=== PATIENT | female | born 1945 | race Caucasian/White ===

== ENCOUNTER 2018-03-27 23:08 | Inpatient (IN) | payer OTHER ==
[~2018-03-27] VITALS: Ht 157.5 cm; Wt 43.5 kg
--- NOTE | 2018-03-27 23:10 | NUR ---
Patient to ER bed 6 to gown for evaluation. Side rails up.
[2018-03-27 23:20] VITALS: BP_SYST 134
--- NOTE | 2018-03-27 23:20 | NUR ---
Patient to ER via wheelchair from triage, patient brought in by friend after being found at home covered in feces. Patient is awake, alert and confused unable to answer questions as to why she is here. Patient incontinent of liquid stool, skin care given. Vital signs stable, respirations even and unlabored, skin pale, warm and dry to touch. DPA at bedside. Awaiting evaluation by ER MD, will continue to observe and assess.
--- NOTE | 2018-03-27 23:25 | NUR ---
ER at bedside examining patient.
[2018-03-27] MEDS ORDERED: NACL 0.9% 1,000 ML IV ONE (23:26)
[2018-03-27] MEDS ORDERED: ONDANSETRON HCL 4 MG/2 ML VIAL IVP ONE (23:30)
--- NOTE | 2018-03-28 | NUR ---
Patient resting quietly in no acute distress, respirations even and unlabored, skin warm and dry to touch. IV fluids infusing without difficulty, no redness or swelling noted at site.
[2018-03-28 00:07] LABS: HEMOGLOBIN 15.9 g/dL (12.0-16.0); MEAN CORPUSCULAR HEMOGLOBIN 30 pg (27-31); MEAN CORPUSCULAR HGB CONC 33 % (32-36); MEAN CORPUSCULAR VOLUME 89 fL (79.0-98.0); PLATELET COUNT (AUTO) 515 K/uL (130-430); RED BLOOD CELL COUNT(AUTO) 5.39 MIL/uL (4.2-6.2); RED CELL DISTRIBUTION WIDTH 13.2 % (9.0-15.0); WHITE BLOOD COUNT (AUTO) 20.1 K/uL (4.8-10.8)
[2018-03-28 00:12] LABS: ANION GAP 13 (5-15); CALCIUM 9.1 mg/dL (8.4-11.0); CHLORIDE 103 mmol/L (98-107); CREATININE 1.06 mg/dL (0.55-1.30); GLUCOSE 135 mg/dL (70-99); POTASSIUM 3.8 mmol/L (3.5-5.1); SODIUM SERUM 142 mmol/L (136-145); UREA NITROGEN, BLOOD 35 mg/dL (8-21)
[2018-03-28 00:23] LABS: ALANINE AMINOTRANSFERASE 24 U/L (12-78); ALBUMIN 3.1 g/dL (3.4-4.8); ASPARTATE AMINOTRANSFERASE 28 U/L (10-37); LIPASE 141 U/L (73-393); TOTAL BILIRUBIN 0.7 mg/dL (0.0-1.0)
--- NOTE | 2018-03-28 00:40 | NUR ---
# 14 FR In and Out catheter with use of sterile technique. Immediate return of 100 ml ron urine noted. Urine sample collected and sent to lab. Pt tolerated procedure well. Patient unable to toilet self.
[2018-03-28] MEDS ORDERED: PIPERACILLIN/TAZO 3.375 GM in NS 50 ML IV ONE (00:45)
[2018-03-28] MEDS ORDERED: LEVO25TA7 PO (00:48)
[2018-03-28 00:56] LABS: BILIRUBIN,URINE 1+ (NEGATIVE); CLARITY/URINE SL HAZY (CLEAR); COLOR,URINE YELLOW (YELLOW); GLUCOSE,URINE NEGATIVE (NEGATIVE); KETONES,URINE 1+ (NEGATIVE); LEUKOCYTE ESTERASE ,URINE 2+ (NEGATIVE); NITRITE, URINE NEGATIVE (NEGATIVE); PROTEIN URINE TRACE (NEGATIVE); UROBILINOGEN,URINE 0.2 (0.2-1.0)
[2018-03-28 00:56] LABS: BAND % (MANUAL) 2 % (0-6); BASOPHILS % (MANUAL) 0 % (0-2); EOSINOPHILS % (MANUAL) 0 % (0-7); LYMPHOCYTES % (MANUAL) 9 % (20-46); MONOCYTES % (MANUAL) 5 % (0-11)
--- NOTE | 2018-03-28 01:00 | NUR ---
Blood cultures drawn, prior to administration of antibiotic.
[2018-03-28 01:01] LABS: BLOOD, URINE TRACE (NEGATIVE)
[2018-03-28] MEDS ORDERED: PIPERACILLIN/TAZOBACTAM 3.375 GM/VIAL (ZOSYN) IV ONE (01:06)
--- NOTE | 2018-03-28 01:12 | NUR ---
Medicated with Zosyn IVPB. Patient tolerated well. Will continue to monitor.
--- NOTE | 2018-03-28 01:30 | NUR ---
Patient resting quietly in no acute distress, IV fluids infusing without difficulty, no redness or swelling noted at site.
[2018-03-28 01:31] LABS: BACTERIA,URINE MODERATE /HPF (None Seen); MUCUS,URINE 1+ /LPF (None Seen); WBC,URINE 50-80 /HPF (0-3)
--- NOTE | 2018-03-28 02:00 | NUR ---
No adverse reaction noted to medication.
--- NOTE | 2018-03-28 02:15 | NUR ---
Patient will be admitted to care of Dr Oliva. Admitted to MS unit. Will go to room 105. Belongings list completed. Summary report printed. Report will be given at bedside. Transfer to [facility]. IV present no sign or symptom of infiltration.
[2018-03-28 02:20] VITALS: BP_SYST 128
--- NOTE | 2018-03-28 02:31 | NUR ---
ADMISSION: The patient, CONSUELO RAMIREZ, 73 y/o, F admitted by VANESA LIANG MD, with the diagnosis of Diarrhea , was given written information regarding hospital policies, unit procedures and contact persons.
[2018-03-28 02:45] VITALS: BP_SYST 137
--- NOTE | 2018-03-28 02:50 | NUR ---
INITIAL NOTE AT INITIAL ASSESSMENT, PATIENT IS RESTING IN BED, STABLE, NO SIGNS OF RESPIRATORY DISTRESS. SHE IS ANXIOUS BUT HER FRIEND AT BEDSIDE IS ABLE TO CALM HER DOWN. PATIENT VERBALIZES NO PAIN. PLAN OF CARE IS COMMUNICATED WITH HER AND HER FRIEND KARINA AT BEDSIDE. CALL LIGHT- TEACH BACK IS SUCCESSFUL. BED IS LOCKED, ALARMED, AND AT THE LOWEST LEVEL. FALL AND SAFETY PRECAUTIONS WILL BE IN PLACE THROUGHOUT THE SHIFT.
--- NOTE | 2018-03-28 02:55 | NUR ---
POWER OF MARINE ELECTRICIAN PATIENT'S FRIEND KARINA HAS GIVEN PAPERWORK TO SHOW THAT SHE IS THE POWER OF MARINE ELECTRICIAN FOR THE PATIENT. PAPERWORK HAS BEEN PLACED IN PATIENT FOLDER, CHARGE NURSE WILL BE MADE AWARE.
[2018-03-28] MEDS ORDERED: metroNIDAZOLE 500 mg/NS 100 ML IV ONE (03:47)
[2018-03-28] MEDS: KCL 20 mEq in D5/0.45NS 1000mL 1,000 ML IV SCH ×2 (04:01→17:30)
--- NOTE | 2018-03-28 04:46 | NUR ---
NOTE PATIENT IS RESTING IN BED, STABLE, NO SIGNS OF RESPIRATORY DISTRESS. HER FRIEND KARINA IS AT BEDSIDE. CALL LIGHT IS WITHIN REACH. BED IS LOCKED, ALARMED, AND AT THE LOWEST LEVEL.
[2018-03-28] MEDS: metroNIDAZOLE 500 mg/NS 100 ML IV SCH ×3 (05:57→21:02)
--- NOTE | 2018-03-28 06:42 | NUR ---
CLOSING NOTE PATIENT IS SLEEPING, STABLE, NO SIGNS OF RESPIRATORY DISTRESS. HER FRIEND KARINA IS AT BEDSIDE. PATIENT HAD NO DIARRHEA SINCE HER ARRIVAL TO THE [facility] FLOOR. CALL LIGHT IS WITHIN REACH. BED IS LOCKED, ALARMED, AND AT THE LOWEST LEVEL. FALL AND SAFETY PRECAUTIONS HAVE BEEN IN PLACE THROUGHOUT THE SHIFT. WILL CONTINUE TO MONITOR UNTIL SHIFT REPORT IS GIVEN AT BEDSIDE TO AM NURSE.
--- NOTE | 2018-03-28 07:38 | NUR ---
COMMUNICATION WITH DR. LIANG PRN MEDICATION FOR PATIENT'S COMPLAINT OF ABDOMINAL PAIN AND HER ANXIETY IS COMMUNICATED TO MD. ORDERED RECEIVED, READ BACK, VERIFIED, AND ENTERED.
[2018-03-28] MEDS ORDERED: MORPHINE 4 MG/ML INJ. SYRINGE IVP PRN ×2 (07:45)
[2018-03-28] MEDS ORDERED: ACETAMINOPHEN 325 MG TABLET PO PRN (07:45)
--- NOTE | 2018-03-28 08:00 | NUR ---
GI/SKIN/COMFORT Patient had loose stool , perineal area is really red, wash with water/soap , paper towel to avoid irritation , kept/dry skin cream barrier applied repositioned, MD informed regarding skin issue and diarrhea with new order carried out.
[2018-03-28 08:09] VITALS: BP_SYST 152
--- NOTE | 2018-03-28 08:14 | NUR ---
Nutrition Update Martinez Scale 14 noted. Pt admitted for diarrhea, dehydration Diet: mechanical soft diet BMI: 15 kg/m2 RD to follow per nutrition care standards.
[2018-03-28] MEDS ORDERED: MENTHOL/ZINC OXIDE 113 GM OINT. TP PRN (09:15)
[2018-03-28 11:34] VITALS: BP_SYST 126
--- NOTE | 2018-03-28 12:40 | NUR ---
saw the patient, assisted to have lunch. will continue to monitor patients status.
[2018-03-28] MEDS ORDERED: ACETAMINOPHEN 650 MG SUPP.RECT RC PRN (13:30)
--- NOTE | 2018-03-28 14:00 | NUR ---
patient is resting at this time. quite.bit anxious. knows her name only.
--- NOTE | 2018-03-28 15:00 | NUR ---
quite and resting hob elevated. monitor patient status. respiration even and unlabored.
[2018-03-28 16:00] VITALS: BP_SYST 134
--- NOTE | 2018-03-28 16:53 | NUR ---
turn patient up and sides to sides. fed the patients with dessert about 40% ate. still with redness noted at the buttocks area. z guard applied on it.
[2018-03-28] MEDS: PIPERACILLIN/TAZO 2.25G/DEX-IS 50 ML IV SCH ×2 (17:30→23:47)
--- NOTE | 2018-03-28 18:23 | NUR ---
no bm on my time. made comfortable. fed the patient at this time. monitor patients status
--- NOTE | 2018-03-28 19:10 | NUR ---
OPENING NOTES RECEIVED PATIENT AWAKE IN BED. BREATHING UNLABORED ON ROOM AIR. DENIES PAIN AT THIS TIME. IVF INFUSING ORDERED. PLAN OF CARE DISCUSSED WITH PATIENT. PLACED CALL LIGHT WITHIN REACH. BED ALARM ON
--- NOTE | 2018-03-28 19:35 | NUR ---
endorsed to incoming nite nurse.
--- NOTE | 2018-03-28 19:36 | NUR ---
endorsed to incoming nite nurse.
[2018-03-28 21:00] VITALS: BP_SYST 96
--- NOTE | 2018-03-28 21:02 | NUR ---
ATB DUE ANTIBIOTIC INFUSED ORDERED. IVF LINE INTACT.
[2018-03-29] VITALS: BP_SYST 111
[2018-03-29] MEDS: ALPRAZolam 0.25 MG TABLET PO PRN ×3 (03:06→21:52)
--- NOTE | 2018-03-29 03:06 | NUR ---
PT ANXIOUS PATIENT ANXIOUS AND JITTERY. PER PATIENT SHE DOESNT KNOW WHAT TO DO. XANAX GIVEN ORDERED. SIDE RAILS UP X3. CALL LIGHT WITHIN REACH. BED ALARM ON.
[2018-03-29] MEDS: PIPERACILLIN/TAZO 2.25G/DEX-IS 50 ML IV SCH ×3 (05:20→18:34)
--- NOTE | 2018-03-29 05:20 | NUR ---
AM CARE DUE ANTIBIOTIC INFUSED. IV LINE INTACT. PATIENT HAD BM. AM CARE DONE. LINENS CHANGED.
[2018-03-29] MEDS: metroNIDAZOLE 500 mg/NS 100 ML IV SCH ×3 (06:01→21:52)
[2018-03-29] MEDS: LEVOTHYROXINE SODIUM 0.025 MG TABLET PO SCH (06:04)
[2018-03-29 06:45] LABS: BASOPHILS % (AUTO) 0.3 % (0.0-2.0); EOSINOPHILS # (AUTO) 0.2 K/uL (0.0-0.4); HEMATOCRIT 36.3 % (36-48); LYMPHOCYTES # (AUTO) 1.7 K/uL (1.0-5.5); LYMPHOCYTES % (AUTO) 14.7 % (20.5-51.5); MEAN CORPUSCULAR HEMOGLOBIN 31 pg (27-31); MEAN CORPUSCULAR HGB CONC 33 % (32-36); MEAN CORPUSCULAR VOLUME 93 fL (79.0-98.0); MONOCYTES # (AUTO) 0.5 K/uL (0.0-1.0); MONOCYTES % (AUTO) 4.6 % (1.7-9.3); NEUTROPHILS # (AUTO) 9.2 K/uL (1.8-7.7); NEUTROPHILS % (AUTO) 78.4 % (40.0-70.0); PLATELET COUNT (AUTO) 388 K/uL (130-430); RED BLOOD CELL COUNT(AUTO) 3.92 MIL/uL (4.2-6.2); RED CELL DISTRIBUTION WIDTH 13.4 % (9.0-15.0)
[2018-03-29 06:58] LABS: WHITE BLOOD COUNT (AUTO) 11.6 K/uL (4.8-10.8)
--- NOTE | 2018-03-29 07:06 | NUR ---
CLOSING NOTES PATIENT RESTING IN BED. IVF INFUSING WITH IV LINE INTACT. PATIENT NEEDS ATTENDED. CALL LIGHT WITH IN EASY REACH. BED ALARM ON. BED IN LOWEST LOCKED POSITION.
[2018-03-29 07:25] LABS: ANION GAP 7 (5-15); CALCIUM 7.1 mg/dL (8.4-11.0); CHLORIDE 107 mmol/L (98-107); CREATININE 0.89 mg/dL (0.55-1.30); GLUCOSE 90 mg/dL (70-99); POTASSIUM 3.6 mmol/L (3.5-5.1); SODIUM SERUM 141 mmol/L (136-145); UREA NITROGEN, BLOOD 17 mg/dL (8-21)
[2018-03-29 07:46] LABS: AMYLASE 51 U/L (0-100); FREE T4 (FREE THYROXINE) 0.9 ng/dl (0.8-1.5); LIPASE 215 U/L (73-393); PHOSPHORUS 2.3 mg/dL (2.7-4.5)
[2018-03-29 08:00] VITALS: BP_SYST 128
--- NOTE | 2018-03-29 08:00 | NUR ---
OPENING NOTE: RECEIVED REPORT FROM NIGHT NURSE. PATIENT IS RESTING COMFORTABLY IN BED. NO S/S OF DISTRESS OR SOB. PATIENT IS ALERT AND ORIENTED TO NAME ONLY. VITAL SIGNS DOCUMENTED ON VITAL SIGNS FLOWSHEET. IV IS PATENT AND INFUSING. CALL LIGHT IN REACH, BED IN LOWEST POSITION, THREE SIDE-RAILS UP, AND WILL CONTINUE TO MONITOR.
[2018-03-29] MEDS: ENOXAPARIN SODIUM 30 MG/0.3 ML SYRINGE SUBCUT SCH (09:16)
--- NOTE | 2018-03-29 10:00 | NUR ---
RN ROUNDS PATIENT IS RESTING COMFORTABLY IN BED. PATIENT WAS CLEANED UP AND REPOSITIONED. PATIENT IS AWAKE BUT CONFUSED. PATIENT FREQUENTLY REORIENTED. CALL LIGHT IN REACH, BED IN LOWEST POSITION, AND WILL CONTINUE TO MONITOR.
[2018-03-29] MEDS: KCL 20 mEq in D5/0.45NS 1000mL 1,000 ML IV SCH (10:47)
--- NOTE | 2018-03-29 14:00 | NUR ---
RN ROUNDS PATIENT IS RESTING COMFORTABLY IN BED. PATIENT REPOSITIONED. REPOSITIONED. PATIENT IS AWAKE BUT CONFUSED. CALL LIGHT IN REACH, BED IN LOWEST POSITION, AND WILL CONTINUE TO MONITOR.
[2018-03-29 16:00] VITALS: BP_SYST 131
--- NOTE | 2018-03-29 16:00 | NUR ---
RN ROUNDS PATIENT IS RESTING COMFORTABLY IN BED. NO S.S OF DISTRESS OR SOB. PATIENT IS ALERT AND ORIENTED TO NAME ONLY. CALL LIGHT IN REACH, BED IN LOWEST POSITION, AND WILL CONTINUE TO MONITOR.
--- NOTE | 2018-03-29 19:32 | NUR ---
CLOSING NOTE: PATIENT IS RESTING COMFORTABLY IN BED. NO S/S OF DISTRESS OR SOB. PATIENT IS AWAKE BUT CONFUSED. ALL NEEDS MET DURING SHIFT. CALL LIGHT IN REACH, BED IN LOWEST POSITION, AND WILL CONTINUE TO MONITOR.
[2018-03-29 20:04] VITALS: BP_SYST 114
--- NOTE | 2018-03-29 20:04 | NUR ---
Opening notes Pt alert, awake confused, VSS, afebrile. No acute distress noted. IVF infusing L.AC 20G no s/s infiltration noted. Periarea redness/denuded noted. Applied Z guard after pericare. Bed low, locked, siderails x3 up, alarm on. Call light within reach. Will continue to monitor.
--- NOTE | 2018-03-29 21:52 | NUR ---
Rounds/Anxious Pt awake, anxious. CELLOPHANE WORKER provided hygiene care as pt is incontinent of urine. Pt medicated with Xanax as needed. Call light within reach. Safety measures in place. Bed alarm on. To monitor.
[2018-03-30] VITALS: BP_SYST 104
--- NOTE | 2018-03-30 00:20 | NUR ---
Rounds/Pericare Pt alert, anxious, yelling she needs to go bathroom. Pt oriented to surroundings, provided with bedpan, pt only had small amount of soft brown stool, no strong foul odor noted. Pericare provided and Z guard applied to sacral redness area. Will continue to monitor.
[2018-03-30] MEDS: KCL 20 mEq in D5/0.45NS 1000mL 1,000 ML IV SCH ×2 (00:22→18:46)
[2018-03-30] MEDS: PIPERACILLIN/TAZO 2.25G/DEX-IS 50 ML IV SCH ×4 (00:22→18:45)
--- NOTE | 2018-03-30 04:00 | NUR ---
Rounds Pt asleep. No s/s distress or discomfort noted. Call light within reach. Safety measures in place. To monitor.
[2018-03-30] MEDS: LEVOTHYROXINE SODIUM 0.025 MG TABLET PO SCH (06:19)
[2018-03-30] MEDS: metroNIDAZOLE 500 mg/NS 100 ML IV SCH ×3 (06:19→22:21)
--- NOTE | 2018-03-30 06:30 | NUR ---
Closing notes Pt asleep. No s/s distress noted. IV abx infusing as ordered L. AC20G no s/s infiltration noted. Call light within reach. Safety measures in place. To endorse to AM nurse.
[2018-03-30 08:00] VITALS: BP_SYST 110
--- NOTE | 2018-03-30 08:00 | NUR ---
initial notes rec patient asleep when rounds made with ivf infusing well. no infiltration noted. hob slightly elevated. resp easy and unlabored.bed to the lowest position and side rails up and locked. call light within reached and knows when to call for assistance. pt is close to the nurses station.
[2018-03-30] MEDS: ENOXAPARIN SODIUM 30 MG/0.3 ML SYRINGE SUBCUT SCH (09:26)
[2018-03-30] MEDS: ALPRAZolam 0.25 MG TABLET PO PRN (11:27)
--- NOTE | 2018-03-30 11:43 | NUR ---
rounds pt is getting confused and anxiety med was given. stayed at bedside. until patient went back to sleep. call light within reached and knows when to call and pt is close to the nurses station.
--- NOTE | 2018-03-30 12:41 | NUR ---
Dietitian Recommendations * Recommend mechanical soft diet w/ Ensure Enlive BID, Banatrol BID (oral supplement provides an additional 700 kcal/day and 40 gm protein/day) LP, RD Please refer to Nutrition Assessment for details.
[2018-03-30 13:04] VITALS: BP_SYST 111
--- NOTE | 2018-03-30 14:00 | NUR ---
rounds watching tv, no periods of restlessness at this time. no hob slightly elevated. no acute distress noted.
[2018-03-30 16:00] VITALS: BP_SYST 110
--- NOTE | 2018-03-30 16:00 | NUR ---
notes sleeps at intervals and no sob noted. pt close to the nurses station.
[2018-03-30 17:16] VITALS: BP_SYST 115
--- NOTE | 2018-03-30 18:30 | NUR ---
closing notes seen by dr avalos and updated re patient's condition. no sob noted. iv infiltrated and restarted on the l forearm. no infiltration noted. denies pain. bed to the lowest position and side rails up and locked. call light within and close to the nurses station.
[2018-03-30 20:00] VITALS: BP_SYST 110
--- NOTE | 2018-03-30 20:00 | NUR ---
Opening notes Pt awake, confused, eating dinner. VSS afebrile. No s/s distress noted. IVF infusing as ordered on L. FA 20G clear, patent. Safety measures in place, bed alarm on. To monitor.
[2018-03-31] VITALS: BP_SYST 0; BP_SYST 127
--- NOTE | 2018-03-31 00:20 | NUR ---
Rounds Pt asleep, no s/s distress noted. Call light within reach. To monitor.
[2018-03-31] MEDS: PIPERACILLIN/TAZO 2.25G/DEX-IS 50 ML IV SCH ×5 (00:25→17:26)
--- NOTE | 2018-03-31 04:45 | NUR ---
Rounds Pt asleep, no s/s distress or discomfort noted. IVF infusing as ordered no s/s infiltration L. FA 20G. Call light within reach. Bed alarm on. To monitor.
[2018-03-31] MEDS: metroNIDAZOLE 500 mg/NS 100 ML IV SCH ×3 (05:58→22:49)
[2018-03-31] MEDS: LEVOTHYROXINE SODIUM 0.025 MG TABLET PO SCH (06:45)
--- NOTE | 2018-03-31 06:45 | NUR ---
Closing notes Pt asleep, easily arousable. No s/s distress noted. IV abx administered as ordered L. FA 20G no s/s infiltration noted. Call light within reach. Bed alarm on. To endorse to AM nurse.
[2018-03-31 08:00] VITALS: BP_SYST 125
--- NOTE | 2018-03-31 08:00 | NUR ---
initial notes rec patient awake but and confused./ hob slightly elevated with o 2 at 2 liters via nasal cannula. no sob noted. resp easy and unlabored. denies pain at this time. bed to the lowest position and side rails up and locked. call light within reached and pt is close to the nurses station.
[2018-03-31] MEDS: ALPRAZolam 0.25 MG TABLET PO PRN ×2 (08:19→17:33)
[2018-03-31] MEDS: ENOXAPARIN SODIUM 30 MG/0.3 ML SYRINGE SUBCUT SCH (08:20)
[2018-03-31] MEDS: KCL 20 mEq in D5/0.45NS 1000mL 1,000 ML IV SCH ×2 (11:39→21:30)
--- NOTE | 2018-03-31 11:45 | NUR ---
MARTINEZ SCALE EVALUATION: Patient evaluated for a low Martinez score of 14. Patient was awake, alert, confused, shouts, and received in a Heather bed with an Atmos-Air 9000 mattress. Patient is unable to turn independently. Skin is fair (-). Recommend reposition patient side to side only every 2 hours with pillow support and off-load pressure areas with pillows for pressure re-distribution. Elevate, off-load and float bilateral heels with pillows. Use Calmoseptine cream on buttocks and other moisture susceptible areas QID and as needed for soiling. Perform skin care and monitor skin integrity Q shift. Place patient on a low air-loss mattress. Skin assessment: 1. Sacral-Coccygeal area: Erythema from IAD, present on admission. 2. Entire Buttocks and Posterior Proximal Thigh areas: Erythema from IAD, present on admission. 3. Perineal area: Erythema from IAD, present on admission. Recommend: Cleanse involved areas with mild soap and water. Pat dry. Apply antifungal ointment to involved areas BID, and prn for soiling.
--- NOTE | 2018-03-31 11:48 | NUR ---
notes abx was infused , sleeping soundly and wakes up at intervals. bed alarm is on.
[2018-03-31] MEDS ORDERED: MENTHOL/ZINC OXIDE 113 GM OINT. TP PRN (12:15)
[2018-03-31] MEDS ORDERED: ANTIFUNGAL CLEAR OINTMENT TP PRN (12:15)
[2018-03-31 12:28] VITALS: BP_SYST 122
--- NOTE | 2018-03-31 12:41 | NUR ---
RPT and GUN TESTER co treated the patient. See the daily PT note.
--- NOTE | 2018-03-31 12:42 | NUR ---
Discharge Planning: DCP faxed pt faces sheet to [facility] (f [phone] p [phone]): DCP to follow up Addendum: 03/31/18 at 1246 by Hollie Olivares DP Disregard wrong pt
--- NOTE | 2018-03-31 12:46 | NUR ---
Discharge Planning: DCP faxed pt referral to [facility] (f [phone] p [phone]) DCP to follow up. Addendum: 03/31/18 at 1649 by Hollie Olivares DP [facility] (f [phone] p [phone]) per Pat ([phone]) accepting pt, will call CM with room.
[2018-03-31 16:29] VITALS: BP_SYST 126
--- NOTE | 2018-03-31 17:00 | NUR ---
rounds seen by dr avalos and with orders. very confused and keeps repeating her statement. no acute distress noted.
--- NOTE | 2018-03-31 18:21 | NUR ---
JUHI HENDRIX OF PATIENT CALLED AND STATED THAT SHE WANTS PATIENT TO GO TO SNF WHERE HER PCP DR FRASER CAN FOLLOW UP PATIENT, HELP DESK MANAGER TO CALL [facility] FOR PLACEMENT, DEEDEE MADE AWARE.
--- NOTE | 2018-03-31 19:30 | NUR ---
Rounds Patient was cleaned and repositioned for comfort, she is calm. Safety precautions in place. Will monitor.
--- NOTE | 2018-03-31 19:35 | NUR ---
OPENING NOTE Received patient resting in bed awake AOx1 and talking to self, repeating phrases. 20G IV to LFA patent and fluids infusing as ordered. Bed locked to lowest position and call light w/in reach. Updated board, will monitor.
[2018-03-31 20:00] VITALS: BP_SYST 113
[2018-03-31] MEDS ORDERED: MIRTAZAPINE 15 MG TABLET PO SCH (21:00)
[2018-03-31] MEDS: busPIRone HCL 5 MG TABLET PO SCH (21:59)
--- NOTE | 2018-03-31 22:10 | NUR ---
ROUNDS Patient is calm and quiet. IV antibiotic administered and patient tolerated. Safety measures in place. Will monitor.
[2018-04-01 00:33] VITALS: BP_SYST 109
--- NOTE | 2018-04-01 00:50 | NUR ---
IV pulled out Patient was resting on side, quiet and calm. The IV was pulled out, will re-start new IV.
--- NOTE | 2018-04-01 01:30 | NUR ---
IV PLACEMENT: #22 gauge angiocath placed to left forearm. Use of asceptic technique. Opsite placed over site. Blood return noted. Flushed with 10 cc of normal saline. No evidence of infiltration noted. Patient tolerated. IVF were resumed
[2018-04-01] MEDS: PIPERACILLIN/TAZO 2.25G/DEX-IS 50 ML IV SCH ×3 (02:00→11:48)
--- NOTE | 2018-04-01 03:57 | NUR ---
ROUNDS Patient is sleeping, presently calm, symmetrical rise and fall of chest, no distress noted. IVF infusing as ordered. Safety precautions in place and call light near. Will monitor.
--- NOTE | 2018-04-01 05:00 | NUR ---
ROUNDS Patient is awake and sitting upright in bed, trying to sit on side of bed. She is repeating "help me". Patient's pad was wet and she was cleaned, provided with clean linen and repositioned for comfort. She became calm and quiet once again. Due antibiotic was administered. No further needs. Will monitor.
[2018-04-01] MEDS: KCL 20 mEq in D5/0.45NS 1000mL 1,000 ML IV SCH (05:19)
[2018-04-01] MEDS: metroNIDAZOLE 500 mg/NS 100 ML IV SCH ×2 (05:20→14:03)
[2018-04-01] MEDS: LEVOTHYROXINE SODIUM 0.025 MG TABLET PO SCH (06:36)
--- NOTE | 2018-04-01 06:45 | NUR ---
CLOSING NOTE Patient is awake, sitting upright in bed and watching t.v. She is repeating phrases periodically "what do I do now". She was re-oriented to room. 22G to LFA patent. Safety precautions in place and call light near. Will endorse care to oncoming nurse.
[2018-04-01 08:00] VITALS: BP_SYST 125
--- NOTE | 2018-04-01 08:00 | NUR ---
Opening Note received report from shift boss RN, pt resting in bed, A&Ox1, respirations even and unlabored on 2L nasal cannula, pt denies any pain, no acute distress noted, IV site clean, dry, intact, and infusing well, pt educated on use of call light and asked to call for assistance, pt verbalized understanding, call light in reach, bed in low and locked position, bed alarm on, room close to nurses station, fall and aspiration precautions in place.
[2018-04-01] MEDS: busPIRone HCL 5 MG TABLET PO SCH (08:29)
[2018-04-01] MEDS: ENOXAPARIN SODIUM 30 MG/0.3 ML SYRINGE SUBCUT SCH (08:29)
--- NOTE | 2018-04-01 08:31 | NUR ---
Medication pt educated on use and side effects of medication, pt verbalized understanding, tolerated medication administration well, no acute distress noted, pt in bed eating breakfast, fall and aspiration preacutions in place.
--- NOTE | 2018-04-01 09:20 | NUR ---
Physical Therapy physical therapy at bedside working with patient, patient tolerating well, no acute distress noted, fall and aspiration precautions in place.
[2018-04-01] MEDS: ALPRAZolam 0.25 MG TABLET PO PRN (10:31)
--- NOTE | 2018-04-01 10:34 | NUR ---
Anxiety/Medication pt complaint of anxiety, pt educated on use and side effects of PRN xanax, pt verbalized understanding, tolerated medication administration well, no acute distress noted, fall and aspiration precautions in place.
--- NOTE | 2018-04-01 11:37 | NUR ---
Nutrition Note RD D/C Ensure Enlive BID oral nutrition supplement order as per batch records clerk, RN Silvia stated that pt does not care for supplement, and is causing diarrhea. RD to continue to follow as per nutrition care standards.
--- NOTE | 2018-04-01 11:53 | NUR ---
Medication pt educated on medication use and side effects, pt verbalized understanding, tolerating medication administration well, no acute distress noted, no additional needs at this time, fall and aspiration precautions in place.
--- NOTE | 2018-04-01 12:00 | NUR ---
JOCELYNE DC PLANNING: ACUTE REHAB TRANSFER PER CHG/YESSICA, Pt's SIMEON/KARINA THOMPSON IS WANTING Pt TO TRANSFER TO FACILITY WHERE DR. FRASER CAN BE HER TREATING MD. JOCELYNE SPOKE WITH [facility] PER PHONE; EXPLAINED ACUTE REHAB VERSUS REHAB AT SNF. CM CONTACTED [facility] IN-Pt ACUTE REHAB UNIT: [phone]; AND, SPOKE WITH REHAB JOCELYNE/JENNIFER ABOUT EVAL AND BED AVAILABILITY FOR Pt TRANSFER DUE TO SIMEON's REQUEST FOR DR. FRASER TO FOLLOW Pt. OBTAINED REHAB RENY's DIRECT NUMBER: [phone]; AND, FAX: [phone]. JOCELYNE FAXED MEDICAL INFO FOR REVIEW BY REHAB RENY AND REHAB FINANCE EXECUTIVE/DR. HERNANDEZ REQUESTED TO EVAL FOR ADMISSION. REHAB RENY WAS UPDATED THAT Pt's INSURANCE WILL BE CHANGING TO [facility] ON 04/04/2018; AND, JENNIFER STATED THEY ARE CONTRACTED WITH [employer]; AND, SHE WOULD BE WILLING TO CONTACT [facility] FOR CONT'd AUTH FOR ACUTE REHAB AFTER 04/04/18; AND, IF DENIED, WILL COORDINATE TRANSFER TO CONTRACTED SNF FOR CONT'd REHAB SERVICES NEEDED; AND, WILL INQUIRE IF DR. FRASER ABLE TO FOLLOW ARE RECOMMENDED CONTRACTED SNF(s). F/UP WITH [facility] INTAKE/PAT REGARDING BED AVAILABILITY. [facility] CM/PAT UPDATED REGARDING CHANGE IN INSURANCE ON 04/04/18; AND, [facility] DENIED ACCEPTANCE OF Pt DUE TO TRANSFER OF INSURANCE STATED THEY WOULD NEED TO WAIT FOR ADMISSION UNTIL THEY OBTAINED AUTH FROM [facility] FOR ACUTE REHAB ADMISSION. DR. LIANG UPDATED ABOUT [facility]'S DENIAL FOR INSURANCE REASONS.
[2018-04-01 12:02] VITALS: BP_SYST 120
--- NOTE | 2018-04-01 14:04 | NUR ---
Medication pt educated on medication use and side effects, pt verbalized understanding, pt tolerating medication administration well, no acute distress noted, no additional needs at this time, fall and aspiration precautions in place.
--- NOTE | 2018-04-01 14:20 | NUR ---
JOCELYNE DC PLAN: IN-Pt ACUTE REHAB REC'd CALL FROM [facility] IN-Pt REHAB JOCELYNE/JENNIFER WHO INFORMED Pt WAS ACCEPTED FOR ADMISSION FOR 1-2 WEEKS OF ACUTE REHAB. Pt TO BE ADMITTED TO ROOM 422-B. CHAYO/JOSE LUIS UPDATED TO CALL REPORT TO ACUTE REHAB UNIT: [phone]; &, THAT BLS TRANSPORT ARRANGED WITH DONNY AT [facility] FOR PICK-UP TODAY AT 1530. [facility] CONTACT: [phone]. JOCELYNE PREPARED TRANSFER PACKET AND IT WAS GIVEN TO FLOOR WITH COMPLETED PCS FORM. CM NOTIFIED DPOA/FRIEND, KARINA THOMPSON OF AMB PICK-UP TIME. CM WILL REMAIN AVAILABLE IF KARINA HAS ANY ADDITIONAL QUESTIONS RE: MEETING WITH [facility] ON 04/03/18. CHG/YESSICA NOTIFIED OF AMBULANCE PICK-UP FOR Pt.
--- NOTE | 2018-04-01 15:05 | NUR ---
Called Report called report to [facility] in-pt acute rehab , gave report to Odette, informed her of scheduled pickup [facility] at 1530.
[2018-04-01 15:06] VITALS: BP_SYST 120
--- NOTE | 2018-04-01 15:40 | NUR ---
Transfer orders to transfer to [facility] in-pt acute rehab, pt stable, no acute distress noted, vital signs stable, IV site clean, dry, and intact, hospital ID band removed, plain ID band in place, report given to [facility], discharge packet and instructions provided, 24hr med rec provided, pt on 2L nasal cannula, all belongings sent with pt, pt transferred via [facility] ambulance.
== END 2018-04-01 15:40 | DRG 871 ==
LOC: SED 23:08 → SMU 03-28 02:07
PROVIDERS: ADMIT Family Medicine; ATTEND Family Medicine
DX: A41.9 Sepsis, unspecified organism (principal); G93.41 Metabolic encephalopathy; N39.0 Urinary tract infection, site not specified; E03.9 Hypothyroidism, unspecified; F03.90 Unspecified dementia, unspecified severity, without behavioral disturbance, psychotic disturbance, mood disturbance, and anxiety; J44.9 Chronic obstructive pulmonary disease, unspecified; M19.90 Unspecified osteoarthritis, unspecified site; I10 Essential (primary) hypertension; Z79.899 Other long term (current) drug therapy; Z91.018 Allergy to other foods
CPT/HCPCS: 36415; 71045; 80048; 80053; 81000-TC; 82150-TC; 83605; 83690-TC; 83735-TC; 84100-TC; 84439; 84443-TC; 84484; 85007; 85025; 85027; 87040-TC; 87086; 93005; 96361; 96365; 96375; 97110-GP; 97116-GP; 97530-GP; 99285; J1650; J2270; J2405; J2543; J3490